=== PATIENT | female | born 1995 | race Caucasian/White ===

== ENCOUNTER 2023-09-23 23:59 | Emergency (ER) | payer OTHER ==
[~2023-09-23] VITALS: Ht 154.9 cm; Wt 103.2 kg
[~2023-09-23 23:59] MED LIST: NOCURR
[2023-09-24 00:14] VITALS: TEMP 98
[2023-09-24 03:00] VITALS: BP 129/76; PULSE 65; RESP 17
== END 2023-09-24 03:36 | disposition home or self-care (01) ==
LOC: EMS 09-24 00:03
DX: R07.89 Other chest pain (principal); J45.909 Unspecified asthma, uncomplicated; V43.52XA Car driver injured in collision with other type car in traffic accident, initial encounter; Y93.89 Activity, other specified; Y92.89 Other specified places as the place of occurrence of the external cause; Y99.8 Other external cause status
CPT/HCPCS: 71045; 72040; 99284